=== PATIENT | female | born 1990 | race African-American/Black ===

== ENCOUNTER 2020-04-15 20:47 | Emergency (ER) | payer OTHER ==
[2020-04-15 20:54] VITALS: BP 140/85
--- NOTE | 2020-04-15 21:02 | ED Physician Documentation ---
History of Present Illness - Stated complaint Stated Complaint: F /NO SX - Chief complaint Chief Complaint: General - History obtained from History obtained from: Patient (The patient is a 29-year-old female AD CAMMIE Who thinks she might have been exposed to an STD such as chlamydia. She denies any symptoms. She is here requesting to be tested.She denies any history of STDs.) Review of Systems Ten Systems: 10 systems reviewed and negative Constitutional: reports: Reviewed and negative Eyes: reports: Reviewed and negative Ears: reports: Reviewed and negative Nose: reports: Reviewed and negative Throat: reports: Reviewed and negative Cardiac: reports: Reviewed and negative Respiratory: reports: Reviewed and negative GI: reports: Reviewed and negative : reports: Reviewed and negative Skin: reports: Reviewed and negative Musculoskeletal: reports: Reviewed and negative Neurologic: reports: Reviewed and negative Psychiatric: reports: Reviewed and negative Endocrine: reports: Reviewed and negative Immunocompromised: reports: Reviewed and negative PD PAST MEDICAL HISTORY - Present Medications Home Medications: Ambulatory Orders Medication Instructions Recorded Confirmed No Known Home Medications 04/15/20 04/15/20 - Allergies Allergies/Adverse Reactions: Allergies Allergy/AdvReac Type Severity Reaction Status Date / Time No Known Drug Allergies Allergy Verified 04/15/20 20:53 PD ED PE NORMAL - Vitals Vital signs reviewed: Yes - General General: Alert and oriented X 3, No acute distress - HEENT HEENT: PERRL - Neck Neck: Supple, no meningeal sign - Cardiac Cardiac: RRR, No murmur - Respiratory Respiratory: Clear bilaterally - Abdomen Abdomen: Normal bowel sounds, Soft, Non tender, Non distended - Derm Derm: Warm and dry - Extremities Extremities: No deformity - Neuro Neuro: Alert and oriented X 3 - Psych Psych: Normal mood, Normal affect Results - Vitals Vitals: Vital Signs - 24 hr 04/15/20 20:47 Temperature 36.9 C Heart Rate 67 Respiratory 18 Rate Blood Pressure 140/85 H O2 Saturation 99 Oxygen O2 Source Room air PD MEDICAL DECISION MAKING - ED course Complexity details: considered differential (Possible STD exposure. Screening test for gonorrhea and chlamydia will be sent patient should follow-up for results as an outpatient.), d/w patient Departure - Departure Disposition: 01 Home, Self Care Clinical Impression: STD exposure Condition: Stable Instructions: STD Poss Follow-Up: your, doctor [Other] - Tomorrow Comments: Call the hospital in 48 hours to get the results of your test. Follow-up with medical at [facility] tomorrow morning.Avoid sexual activity until you get the results of your test.
[2020-04-16 21:02] LABS: TRICHOMONAS VAGINALIS DNA NEGATIVE (NEGATIVE)
== END 2020-04-15 21:35 | disposition home or self-care (01) ==
LOC: ED 20:47
DX: Z20.2 Contact with and (suspected) exposure to infections with a predominantly sexual mode of transmission (principal)
CPT/HCPCS: 87491; 87591; 87661; 99283

== ENCOUNTER 2023-10-22 12:03 | Outpatient (CLI) | payer OTHER | END 2023-10-22 12:04 | disposition critical access hospital (66) | LOC: EMS 12:03 | DX: R11.2 Nausea with vomiting, unspecified (principal); R50.9 Fever, unspecified | CPT/HCPCS: A0425; A0427 ==

== ENCOUNTER 2024-03-26 08:25 | Outpatient (CLI) | payer OTHER ==
[~2024-03-26 08:25] MED LIST: GADOTERATE MEGLUMINE 10 MMOL/20 ML VIAL ONE
--- NOTE | 2024-03-26 11:37 | MRI Report ---
PROCEDURE: Pelvis W/WO INDICATIONS: LEIOMYOMA CONTRAST: Clariscan 15.4ml TECHNIQUE: Coronal ultra fast SE, sagittal breath-hold T2 FSE; axial T1 FSE with and without fat saturation thro ugh the pelvis. Optional long- and short-axis uterine nonbreath-hold T2 FSE through the uterus. Sag ittal or axial dynamic ultra fast GE during administration of contrast. Post-contrast axial or coron al ultra fast GE / 2-D spoiled GE with fat saturation from the iliac crests to the symphysis. Option al diffusion weighted imaging and ADC may be performed. COMPARISON: None. FINDINGS: Image quality: Excellent. Uterus: Anteverted uterus is enlarged measuring 10.5 x 10 x 7.9 cm. Endometrium is normal in thicknes s measuring 7 mm. Endometrial canal is distorted. Susceptibility artifact. Junctional zone is normal in thickness at 12 mm or less. A few uterine fibroids. For example: -Left fundal intramural 6.3 x 6.1 x 4.8 cm, (6/11). -Left mid intramural 4.4 x 3.9 x 2.8 cm, (6/15). -Right fundal intramural 2 x 1.6 x 1.5 cm, (6/15). -Midline fundal exophytic 2.6 x 2.1 x 2 cm, (6/9). Adnexa: Both ovaries are normal in size, without suspicious cystic or solid lesions. Right ovarian T 2 hyperintense cyst measuring 2.5 x 2.3 x 2.3 cm, (6/7). No enhancement. Urinary system: Bladder wall is normal in thickness. Distal ureters are non distended. Urethra jacklyn ears normal in morphology. Nodes and vessels: No pelvic or inguinal adenopathy by size criteria. Iliac vessels are normal in s ize. Bowel and peritoneum: Small amount of free fluid in the pelvis. Inferior colon and small bowel loops are normal in caliber. Soft tissues: No inguinal hernias. No findings of pelvic floor incompetence in the absence of provo cation. Bones: Marrow demonstrates normal overall signal. IMPRESSION: 1. Enlarged fibroid uterus. Largest measuring 6.3 cm at the left intramural fundus. 2. Endometrium measures 7 mm. 3. Small simple right ovarian cyst measuring 2.5 cm. Reviewed by: Edwin Bauman MD on 03/26/2024 11:36 AM PDT Approved by: Edwin Bauman MD on 03/26/2024 11:36 AM PDT Station ID: [id number]
[2024-03-26] MEDS: GADOTERATE MEGLUMINE 10 MMOL/20 ML VIAL IVP ONE (12:35)
== END 2024-03-26 08:26 | disposition home or self-care (01) ==
LOC: DI 08:25
PROVIDERS: ATTEND Nurse Practitioner Family
DX: D25.1 Intramural leiomyoma of uterus (principal); N83.291 Other ovarian cyst, right side
CPT/HCPCS: 72197; A9575